=== PATIENT | female | born 1985 | race Caucasian/White ===

== ENCOUNTER 2019-08-24 15:10 | Emergency (ER) | payer SELFPAY ==
[~2019-08-24] VITALS: Ht 170.2 cm; Wt 61.2 kg
--- NOTE | 2019-08-24 15:29 | Emergency Room Report ---
History of Present Illness General Chief Complaint: Eye Problems Source: Patient Present Illness HPI Patient was exposed to tear gas Sunday night around midnight. She almost collapsed with nausea that night. Her vision has been worse since that time and she feels pain and pressure in both of her eyes but more on the left-hand side. Prior to this episode she could only see the large in the second line on an eye chart. Right now she has difficulty identifying the large E on the our chart. 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 The vision is somewhat changed in the right eye also. The pain is rated 6/10. She refused to take any pain medication. She rinsed her eyes with tap water. She has been using saline drops. She occasionally uses antibiotic drops if her eyes bother her. She has not been using them recently. She last saw her class a truck driver 15 years ago. She is concerned that the pressure in her eyes is increased. She states that the class a truck driver had recommended that she be on medication to decrease the pressure in her eyes because she has had nerve damage in the past. Insect bites UE bilaterally. No fevers or chills. Nausea has resolved. Denies headache. No neck pain. Dizziness resolved. Allergies: Coded Allergies: IODINE (Verified Allergy, Unknown, 08/24/19) COVID-19 Screening Contact w/high risk pt: No Recent Travel to affected area: No Experienced COVID-19 symptoms?: No COVID-19 Testing performed IT [employer]URE [employer]CHITECT: No Patient History Past Medical History: see triage record Social History: Denies: smoking Social History Narrative At home Last Menstrual Period: 4 weeks ago. Now: No Reviewed Nursing Documentation: PMH: Agreed; PSxH: Agreed Nursing Documentation-PMH Past Medical History: No History, Except For Hx Asthma: Yes Review of Systems Constitutional: Reports: see HPI Eye: Reports: see HPI ENT: Denies: throat pain Respiratory: Denies: shortness of breath Cardiovascular: Denies: chest pain Gastrointestinal: Reports: see HPI Skin: Denies: rash Psychiatric: Reports: anxiety Neurological: Reports: see HPI Physical Exam Vital Signs Date Time Temp Pulse Resp B/P (MAP) Pulse Ox O2 Delivery O2 Flow Rate FiO2 08/24/19 15:19 97.9 67 20 119/73 (88) 98 Room Air Sp02 EP Interpretation: reviewed, normal General Appearance: well appearing, no apparent distress, GCS 15 Head: normocephalic Eyes: bilateral eye PERRL, bilateral eye EOMI, bilateral eye Scleral Injection ENT: moist mucus membranes Neck: full range of motion, supple Respiratory: normal inspection Cardiovascular #1: regular rate, rhythm Cardiovascular #2: 2+ radial (R) Gastrointestinal: normal inspection Musculoskeletal: gait/station normal Neurologic: alert, grossly normal - Aside from visual changes Psychiatric: anxious Skin: normal color, warm/dry, other - multiple insect bites UEs Procedures Additional Procedure Procedure Narrative Slit lamp exam: L cataract, no cells bilaterally anterior chambers, no florisene uptake. Tonometry: L - 15, 19, 17 R- 17, 17, 13 Visual acuities documented by RN Medical Decision Making Diagnostic Impression: Primary Impression: Exposure to chemical irritant Additional Impressions: Chemical conjunctivitis of both eyes Insect bites Qualified Codes: W57.XXXA - Bitten or stung by nonvenomous insect and other nonvenomous arthropods, initial encounter ER Course Patient presents with decreased vision and pressure in her eyes after being exposed to tear gas 2 days ago. Differential includes chemical conjunctivitis, glaucoma, bacterial conjunctivitis, uveitis amongst others. Also corneal abrasion needs to be excluded. Slit lamp exam is indicated. See procedure notes. Patient irrigated with saline with Rell lenses bilaterally. Improved after irrigation. She complains about continued pressure in her eyes and is requesting pills or drops to treat this. Discussed this issue with Dr. Lewis. He advises not treating normal global pressure with any medication at this time. Attempt to reassure patient however she is concerned about nerve damage in her eyes previously. She was somewhat reassured by consultation. Patient advised to follow-up with her class a truck driver. Patient stable for outpatient observation and treatment. Last Vital Signs Date Time Temp Pulse Resp B/P (MAP) Pulse Ox O2 Delivery O2 Flow Rate FiO2 08/24/19 17:00 97.9 68 20 119/73 98 Room Air Status: improved Disposition: HOME, SELF-CARE Condition: Improved Scripts Naphazoline Hcl/Pheniramine (OPCON-A EYE DROPS) 15 Ml Drops 2 DROP OP Q6HR PRN for inflammation, #10 ML Prov: Godwin Porter MD 08/24/19 Ketorolac Tromethamine (ACULAR) 5 Ml Drops 1 DROP BOTH EYES TID, #10 ML Prov: Godwin Porter MD 08/24/19 Godwin Porter MD Aug 24, 2019 15:29
[2019-08-24 15:31] VITALS: BP 119/73
--- NOTE | 2019-08-24 15:33 | NUR ---
ED Nurse Note:pt. reported that she had tear gas sprade in her eyes a few days ago and her eyes still burning ,visual acuity done
[2019-08-24] MEDS ORDERED: Fluorescein Strips BOTH EYES ONE (15:45)
[2019-08-24] MEDS ORDERED: Tetracaine 0.5% Opth 4ml Soln LEFT EYE ONE (15:45)
[2019-08-24] MEDS ORDERED: Morgan Lens TOPIC ONE (16:15)
--- NOTE | 2019-08-24 16:40 | NUR ---
ED Nurse Note:pt. had bilateral eyes irrigation done with roosevelt lens
[2019-08-24] MEDS ORDERED: OPCON-A EYE DRO15 ML OP (16:48)
[2019-08-24] MEDS ORDERED: ACULAR5 ML BOTH EYES (16:48)
[2019-08-24 17:00] VITALS: BP 119/73
--- NOTE | 2019-08-24 17:00 | NUR ---
ED Nurse Note: Pt cleared by health care Provider for discharge. DC instructions/prescription was given and explained to pt and verbalized understanding of teachings. All medical deviecs such as ID band removed. Pt is AAO x4, ambulatory and left with all personal belongings.
== END 2019-08-24 17:00 | disposition home or self-care (01) ==
LOC: EMR 15:42
DX: T59.3X4A Toxic effect of lacrimogenic gas, undetermined, initial encounter (principal); H10.213 Acute toxic conjunctivitis, bilateral; Y92.9 Unspecified place or not applicable; S40.862A Insect bite (nonvenomous) of left upper arm, initial encounter; S40.861A Insect bite (nonvenomous) of right upper arm, initial encounter; W57.XXXA Bitten or stung by nonvenomous insect and other nonvenomous arthropods, initial encounter; Z91.041 Radiographic dye allergy status
CPT/HCPCS: 99283; J7040